=== PATIENT | female | born 1940 | race Caucasian/White ===

== ENCOUNTER 2021-05-02 19:44 | Emergency (ER) | payer MEDICARE, BC, MEDICAID ==
[2009-09-02 08:37] VITALS: BP 107/60
[~2021-05-02] VITALS: Ht 172.7 cm; Wt 131.8 kg
[~2021-05-02 19:44] MED LIST: ACULAR 10 ML10 ML OP; ALLERGY RELIEF10 MG PO; AMLOPIDINE; AMOXICILLIN875 MG PO; ASPIR-LOW81 MG PO; ASPIR-LOX325 MG PO; ASPIRIN E.C. 8181 MG PO; CALCITRIOL PO; CALCIUM 600/VIT1 CAP PO; CEPHALEXIN500 M1 PO; CETIRIZINE10 MG PO; CITRUCEL PACKET1 PKT PO; COREG 6.256.25 MG/TA PO; CYMBALTA 60MG60 MG PO; DESYREL 50MG50 MG PO; FLUTICASON0.05 MG/Ac NS; GLUCOPHAGE500 MG/TAB PO; HYZAAR; IMDUR 30MG30 MG/TAB PO; IRON TABLETS325 MG PO; KLOR-CON M2020 MEQ PO; LIPITOR20 MG PO; LYRICA100 MG PO; NORCO 325 MG-51 TAB PO; PRED FORTE; PRILOSEC 20MG20 MG PO; REGLAN 5MG T5 MG/TAB PO; SINGULAIR10 MG PO; STOOL SOFTENER100 MG PO; SYNTHROID0.175 MG PO; SYNTHROID0.2 M1 PO; TRAZODONE150 MG PO; TYLENOL 325MG325 MG PO; ZANTAC 7575 MG PO; ZOCOR 40MG40 MG PO; ZOVIRAX400 MG PO; ZYMAR OPHTH SOL5 ML OP; allergy relief; cinnamon
[2021-05-02 19:48] VITALS: TEMP 97.8
[2021-05-02 21:53] VITALS: BP 136/79; PULSE 89
== END 2021-05-02 21:54 | disposition home or self-care (01) ==
LOC: COL.ER 19:44
DX: S70.01XA Contusion of right hip, initial encounter (principal); E11.9 Type 2 diabetes mellitus without complications; I10 Essential (primary) hypertension; E78.5 Hyperlipidemia, unspecified; E66.9 Obesity, unspecified; Z79.899 Other long term (current) drug therapy; Z79.84 Long term (current) use of oral hypoglycemic drugs; W19.XXXA Unspecified fall, initial encounter; Y92.129 Unspecified place in nursing home as the place of occurrence of the external cause